=== PATIENT | male | born 1975 | race Caucasian/White ===

== ENCOUNTER 2023-10-31 06:15 | Day surgery (SDC) | payer BC, OTHER ==
[2023-10-31] MEDS ORDERED: Dextrose 5%-0.45% NaCl 1,000 ML IV SCH (06:30)
[2023-10-31] MEDS ORDERED: Midazolam 1 MG/ML 2 ML SDV ONE (07:02)
[2023-10-31] MEDS ORDERED: Midazolam 1 MG/ML 2 ML SDV IV ONE ×3 (07:02→07:43)
[2023-10-31] MEDS ORDERED: fentaNYL 100 MCG/2 ML SDV IV ONE ×3 (07:02→07:42)
[2023-10-31] MEDS ORDERED: fentaNYL 100 MCG/2 ML SDV ONE (07:03)
[2023-10-31 09:19] VITALS: BP 152/91; PULSE 93
== END 2023-10-31 09:26 | disposition home or self-care (01) ==
LOC: DL.ENDO 06:15
PROVIDERS: ATTEND Internal Medicine Gastroenterology
DX: K21.9 Gastro-esophageal reflux disease without esophagitis (principal); E78.5 Hyperlipidemia, unspecified; F17.210 Nicotine dependence, cigarettes, uncomplicated; Z98.890 Other specified postprocedural states
CPT/HCPCS: 43239; 87077; J2250; J3010; J7042

== ENCOUNTER 2023-11-13 06:18 | Day surgery (SDC) | payer OTHER ==
[2023-11-13] MEDS ORDERED: Dextrose 5%-0.45% NaCl 1,000 ML IV SCH (06:30)
[2023-11-13] MEDS ORDERED: fentaNYL 100 MCG/2 ML SDV ONE (07:20)
[2023-11-13] MEDS ORDERED: Midazolam 1 MG/ML 2 ML SDV ONE (07:20)
[2023-11-13] MEDS ORDERED: fentaNYL 100 MCG/2 ML SDV IV ONE ×4 (07:20→08:22)
[2023-11-13] MEDS ORDERED: Midazolam 1 MG/ML 2 ML SDV IV ONE ×7 (07:20→08:20)
[2023-11-13 09:55] VITALS: BP 135/69; PULSE 76
== END 2023-11-13 10:00 | disposition home or self-care (01) ==
LOC: DL.ENDO 06:18
PROVIDERS: ATTEND Internal Medicine Gastroenterology
DX: Z12.11 Encounter for screening for malignant neoplasm of colon (principal); D12.4 Benign neoplasm of descending colon; K57.30 Diverticulosis of large intestine without perforation or abscess without bleeding; K64.8 Other hemorrhoids; K21.9 Gastro-esophageal reflux disease without esophagitis; I10 Essential (primary) hypertension; E78.5 Hyperlipidemia, unspecified; F17.210 Nicotine dependence, cigarettes, uncomplicated; Z79.899 Other long term (current) drug therapy
CPT/HCPCS: J2250; J3010; J7042